=== PATIENT | male | born 1970 | race African-American/Black ===

== ENCOUNTER 2023-05-17 12:51 | Emergency (ER) | payer MEDICAID ==
[~2023-05-17] VITALS: Ht 180.3 cm; Wt 127.3 kg
[2023-05-17 12:56] VITALS: BP 139/104; TEMP 98.6
[2023-05-17 13:08] LABS: COVID AG,FIA SOURCE NASAL SWAB
[2023-05-17 13:28] LABS: INFLUENZA TYPE A NEGATIVE FOR TYPE A (NEGATIVE); INFLUENZA TYPE B NEGATIVE FOR TYPE B (NEGATIVE)
[2023-05-17] MEDS ORDERED: PredniSONE 20 MG TABLET PO ONE (14:15)
[2023-05-17 14:29] VITALS: PULSE 102; RESP 18; RESP 28; O2SAT 94
[2023-05-17] MEDS ORDERED: ALBUTEROL SULFATE 2.5 MG/0.5 ML NEB SOLUTION NEB ONE (14:30)
[2023-05-17] MEDS ORDERED: IPRATROPIUM BROMIDE 0.5 MG/2.5 ML NEB SOLUTION NEB ONE (14:30)
[2023-05-17 14:34] VITALS: PULSE 102; RESP 28; O2SAT 97
[2023-05-17] MEDS ORDERED: AMOX250C4 PO (15:27)
[2023-05-17] MEDS ORDERED: PRED-554 PO (15:27)
== END 2023-05-17 15:45 | disposition home or self-care (01) ==
LOC: EMS 13:15
DX: J45.909 Unspecified asthma, uncomplicated (principal); Z20.822 Contact with and (suspected) exposure to COVID-19
CPT/HCPCS: 71045; 87804; 94640; 99284; C9803; J7613

== ENCOUNTER 2024-02-04 17:24 | Emergency (ER) | payer SELFPAY ==
[~2024-02-04] VITALS: Ht 180.3 cm; Wt 127.3 kg
[~2024-02-04 17:24] MED LIST: AMOX250C4 PO; PRED-554 PO
[2024-02-04 17:26] VITALS: BP 141/86; PULSE 96; RESP 18; TEMP 97.9
[2024-02-04] MEDS ORDERED: ALBU18HF12 IH (17:33)
[2024-02-04] MEDS ORDERED: TRIA454O5 TP (20:04)
== END 2024-02-04 20:30 | disposition home or self-care (01) ==
LOC: EMS 17:26
DX: L30.9 Dermatitis, unspecified (principal); J45.909 Unspecified asthma, uncomplicated; Z91.013 Allergy to seafood
CPT/HCPCS: 99281; Z7502

== ENCOUNTER 2025-02-28 07:03 | Emergency (ER) | payer OTHER ==
[~2025-02-28] VITALS: Ht 180.3 cm; Wt 127.0 kg
[~2025-02-28 07:03] MED LIST changes: +ALBU18HF12 IH; -AMOX250C4 PO; +TRIA454O5 TP
[2025-02-28 07:19] VITALS: TEMP 97.1
[2025-02-28] MEDS: PredniSONE 20 MG TABLET PO ONE (08:03)
[2025-02-28] MEDS ORDERED: ALBU18HF12 IH (08:05)
[2025-02-28] MEDS ORDERED: PRED-554 PO (08:05)
[2025-02-28] MEDS ORDERED: TRIA15CR49 TP (08:05)
[2025-02-28] MEDS: IPRATROPIUM BROMIDE 0.5 MG/2.5 ML NEB SOLUTION NEB ONE (08:29)
[2025-02-28] MEDS: ALBUTEROL SULFATE 2.5 MG/0.5 ML NEB SOLUTION NEB ONE (08:29)
[2025-02-28 08:30] VITALS: PULSE 100; RESP 20; O2SAT 98
[2025-02-28 08:46] VITALS: PULSE 100; RESP 20; O2SAT 99
[2025-02-28 09:30] VITALS: BP 130/78; PULSE 100; RESP 18; O2SAT 98
== END 2025-02-28 09:50 | disposition home or self-care (01) ==
LOC: EMS 07:06
DX: J45.901 Unspecified asthma with (acute) exacerbation (principal); L30.9 Dermatitis, unspecified; Z91.013 Allergy to seafood; Z91.018 Allergy to other foods; Z79.52 Long term (current) use of systemic steroids
CPT/HCPCS: 99283; 94640; J7512; 94644

== ENCOUNTER 2025-03-01 21:20 | Emergency (ER) | payer OTHER ==
[~2025-03-01] VITALS: Ht 180.3 cm; Wt 127.3 kg
[~2025-03-01 21:20] MED LIST changes: +TRIA15CR49 TP
[2025-03-01 21:34] VITALS: BP 126/83; PULSE 86; RESP 16; TEMP 97.8; O2SAT 96
[2025-03-02] MEDS ORDERED: DOXY-354 PO (00:39)
[2025-03-02] MEDS: DOXYCYCLINE HYCLATE 100 MG TABLET PO ONE (00:56)
== END 2025-03-02 01:03 | disposition home or self-care (01) ==
LOC: EMS 21:21
DX: L03.313 Cellulitis of chest wall (principal); J45.909 Unspecified asthma, uncomplicated; Z79.52 Long term (current) use of systemic steroids; Z91.018 Allergy to other foods; Z91.013 Allergy to seafood; Z79.899 Other long term (current) drug therapy
CPT/HCPCS: 99284; Z7502; Z7610

== ENCOUNTER 2025-05-19 12:08 | Emergency (ER) | payer OTHER ==
[~2025-05-19] VITALS: Ht 180.3 cm; Wt 127.0 kg
[~2025-05-19 12:08] MED LIST changes: +DOXY-354 PO
[2025-05-19 12:18] VITALS: BP 129/82; TEMP 97.5
[2025-05-19 13:09] LABS: COVID AG,FIA SOURCE NASAL SWAB
[2025-05-19 13:32] LABS: INFLUENZA TYPE A NEGATIVE FOR TYPE A (NEGATIVE); SARS-COV2 (COVID) ANTIGEN,FIA Negative (Negative)
[2025-05-19 13:34] LABS: INFLUENZA TYPE B POSITIVE FOR TYPE B (NEGATIVE)
[2025-05-19 14:00] VITALS: PULSE 97; RESP 20; O2SAT 97; O2SAT 98; O2SAT 99
[2025-05-19 14:15] VITALS: PULSE 97; RESP 20; O2SAT 100
[2025-05-19] MEDS: PredniSONE 20 MG TABLET PO ONE (14:45)
[2025-05-19 14:52] LABS: BASOPHILS % (AUTO) 0.7 % (0.0-2.0); EOSINOPHILS % (AUTO) 5.8 % (1.0-6.0); HEMATOCRIT 47.4 % (41-53); HEMOGLOBIN 15.5 g/dL (13.5-17.5); LYMPHOCYTES # (AUTO) 1.4 K/uL (1.0-4.8); LYMPHOCYTES % (AUTO) 21.4 % (22.0-44.0); MEAN CORPUSCULAR HGB CONC 32.8 G/dL (31.0-37.0); MEAN CORPUSCULAR VOLUME 92 fL (80-100); MONOCYTES # (AUTO) 0.8 K/uL (0.1-1.0); MONOCYTES % (AUTO) 12.1 % (2.0-9.0); PLATELET COUNT (AUTO) 229 K/uL (150-450); RED BLOOD CELL COUNT(AUTO) 5.18 MIL/uL (4.50-5.90); RED CELL DISTRIBUTION WIDTH 13.6 % (11.5-14.5); WHITE BLOOD COUNT (AUTO) 6.7 K/uL (4.5-11.0)
[2025-05-19 15:00] LABS: ANION GAP 0 mmol/L (8-16); CALCIUM, TOTAL 8.7 mg/dL (8.8-10.5); CARBON DIOXIDE 32 mmol/L (22-29); CHLORIDE 104 mmol/L (98-107); CREATININE 1.16 mg/dL (0.60-1.30); GLOMERULAR FILTR. RATE CALC > 60 mL/min (>60); GLUCOSE,RANDOM 399 mg/dL (70-110); POTASSIUM 3.9 mmol/L (3.5-5.1); SODIUM SERUM 136 mmol/L (136-145); UREA NITROGEN, BLOOD 7 mg/dL (7-18)
[2025-05-19 15:09] LABS: TROPONIN I-HIGH SENSITIVITY 5 ng/L (<76)
[2025-05-19] MEDS ORDERED: 0.9% SODIUM CHLORIDE 5 ML NEB SOLUTION NEB ONE (15:16)
[2025-05-19] MEDS: ALBUTEROL SULFATE 2.5 MG/0.5 ML 5 ML NEB SOLUTION NEB ONE (15:17)
[2025-05-19] MEDS: IPRATROPIUM BROMIDE 0.5 MG/2.5 ML NEB SOLUTION NEB ONE (15:17)
[2025-05-19] MEDS ORDERED: ALBU18HF12 IH (16:39)
[2025-05-19] MEDS ORDERED: IPRA3AMP24 IH (16:39)
[2025-05-19] MEDS ORDERED: GUAIFDM PO (16:39)
== END 2025-05-19 17:02 | disposition home or self-care (01) ==
LOC: EMS 12:09
DX: J45.901 Unspecified asthma with (acute) exacerbation (principal); J11.1 Influenza due to unidentified influenza virus with other respiratory manifestations; E11.65 Type 2 diabetes mellitus with hyperglycemia; Z79.52 Long term (current) use of systemic steroids; Z98.890 Other specified postprocedural states; Z79.899 Other long term (current) drug therapy; Z91.013 Allergy to seafood; Z91.018 Allergy to other foods; Z20.822 Contact with and (suspected) exposure to COVID-19
CPT/HCPCS: 99285; 71045; 87426; 80048; 84484; 85025; 87804; 36415; 94640; 93005; J7512